=== PATIENT | female | born 1940 | race Caucasian/White ===

== ENCOUNTER 2024-11-04 14:08 | Emergency (ER) | payer OTHER, SELFPAY ==
[2024-11-04 14:24] VITALS: BP 149/68
[2024-11-04 15:02] LABS: % Basophils 1.1 % (0-2); % Eosinophils 1.7 % (0-6); % Immature Granulocytes 0.3 % (0-0.5); % Lymphocytes 22.1 % (20.5-51.1); % Monocytes 8.5 % (1.7-9.3); % Neutrophils 66.3 % (42.2-75.2); Absolute Basophils 0.1 10^3/uL (0-0.2); Absolute Eosinophils 0.1 10^3/uL (0-0.7); Absolute Lymphocytes 1.5 10^3/uL (1.2-3.4); Absolute Monocytes 0.6 10^3/uL (0.1-0.6); Absolute Neutrophils 4.4 10^3/uL (1.4-6.5); Hematocrit 37.8 % (37.0-47.0); Hemoglobin 12.8 g/dL (12.0-16.0); Mean Corp Hgb Conc. 33.9 g/dL (33.0-37.0); Mean Corpuscular Hgb 30.5 pg (27.0-31.0); Mean Corpuscular Volume 90.2 fL (81.0-99.0); Mean Platelet Volume 10.7 fL (7.4-10.4); Nucleated Red Blood Cells % 0 %; Platelet Count 242 10^3/uL (130-400); Red Blood Cell Count 4.19 10^6/uL (4.20-5.40); Red Cell Dist. Width 12.6 % (11.5-14.5); White Blood Cell Count 6.6 10^3/uL (4.8-10.8)
[2024-11-04 15:24] LABS: ALT (SGPT) 18 U/L (0-35); AST (SGOT) 25 U/L (14-36); Albumin 4.5 g/dl (3.5-5.0); Alkaline Phosphatase 91 U/L (38-126); Blood Urea Nitrogen 19 mg/dl (7-17); Calcium 9.5 mg/dl (8.4-10.2); Carbon Dioxide 28 mmol/L (22-30); Chloride 101 mmol/L (98-107); Glucose 128 mg/dl (70-99); Potassium 4.1 mmol/L (3.5-5.1); Sodium 136 mmol/L (135-145); Total Bilirubin 0.4 mg/dl (0.2-1.3); Total Protein 7.2 g/dl (6.3-8.2); eGFR > 60.00
[2024-11-04 16:59] VITALS: BP 151/63
[2024-11-04 18:40] VITALS: BMI 27.4
[2024-11-04 18:43] VITALS: BP 138/70
--- NOTE | 2024-11-04 18:59 | ED.GENMED ---
History of Present Illness
<Kaitlin Franklin PA-C - Last Filed: 11/04/24 23:17>
General
Chief Complaint: Heart Rate Problem
Source: patient
Exam Limitations: none
Time Seen by Provider: 11/04/24 18:31
Nursing documentation reviewed up to this point in time: agreed with
History of Present Illness
History of Present Illness:
Patient is an 84-year-old female with history atrial fibrillation status post multiple ablations, hypertension presenting to the emergency department for evaluation of heart palpitations. Patient states that over the past 2 days she has had
multiple episodes where she has felt palpitations and generalized weakness. Her Apple Watch has told her that she is in atrial fibrillation. Patient states that yesterday her Apple Watch states she was in atrial fibrillation with a heart rate in
130s. However she did self convert to normal sinus rhythm. Today while she was at lunch her Apple Watch once again told her that atrial fibrillation, although this time her heart rate was in the 80s. She came to the emergency department for
evaluation. Patient states that shortly after arriving to the emergency department she seemed to convert to normal sinus rhythm.
Patient states she feels generally weak. She did have an episode of chest tightness earlier today although has since resolved.
Patient did reach out to her attenuator, Dr. Leon at [facility] to let him know that she was coming to emergency department. He had recommended that she be started on the low-dose metoprolol and follow-up with him in office.
Review of Systems
<Kaitlin Franklin PA-C - Last Filed: 11/04/24 23:17>
Review of Systems
Allergies reviewed?: Yes
All Other Systems: ROS reviewed and negative except as documented in HPI and ROS
Phy Exam
<Kaitlin Franklin PA-C - Last Filed: 11/04/24 23:17>
Physical Exam
Physical Exam:
Vitals: Mildly hypertensive, otherwise vital signs are stable
General: Patient is well appearing, no acute distress. Nontoxic appearing
Skin: Warm and dry, no rashes or lesions
Head: Normocephalic, atraumatic
Eyes: Sclera nonicteric. EOMs intact. No nystagmus.
Throat: Protecting airway
Neck: Normal ROM, no cervical spine tenderness, no meningismus
Cardiac: Regular rate and rhythm, no murmurs.
Pulm: Normal respiratory effort, no wheezes, rales, rhonchi heard on exam.
Abdomen: Abdomen soft. No abdominal tenderness.
Extremities: No evidence of cyanosis or edema. Palpable DP pulse bilaterally
Neuro: AAOx3. Grossly intact.
Psychiatric: Normal affect.
Course
<Kaitlin Franklin PA-C - Last Filed: 11/04/24 23:17>
Orders/Labs/Results
Orders:
Orders
11/04/24 14:08
EKG [Electrocardiogram (*1)] Urgent
Reason for Study: Atrial Fibrillation
11/04/24 14:09
EKG- Treatment ONCE
11/04/24 14:35
Comprehensive Metabolic Panel Urgent
11/04/24 14:36
Complete Blood Count/With Diff Urgent
Abnormal Lab Results
11/04/24 11/04/24
14:35 14:36
RBC 4.19 L 10^6/uL
(4.20-5.40)
MPV 10.7 H fL
(7.4-10.4)
BUN 19 H mg/dl
(7-17)
Glucose 128 H mg/dl
(70-99)
11/04/24 14:36
11/04/24 14:35
Vital Signs
Initial and Last Documented VS:
Initial Vital Signs
Temp Pulse Resp BP Pulse Ox
97.5 F 65 18 149/68 98
11/04/24 14:24 11/04/24 14:24 11/04/24 14:24 11/04/24 14:24 11/04/24 14:24
Last Documented Vital Signs
Temp Pulse Resp BP Pulse Ox
98.2 F 54 10 144/60 95
11/04/24 16:59 11/04/24 20:00 11/04/24 20:00 11/04/24 20:00 11/04/24 20:00
<Kenyetta Feliciano, DO - Last Filed: 11/04/24 20:02>
Orders/Labs/Results
Orders:
Orders
11/04/24 14:08
EKG [Electrocardiogram (*1)] Urgent
Reason for Study: Atrial Fibrillation
11/04/24 14:09
EKG- Treatment ONCE
11/04/24 14:35
Comprehensive Metabolic Panel Urgent
11/04/24 14:36
Complete Blood Count/With Diff Urgent
Abnormal Lab Results
11/04/24 11/04/24
14:35 14:36
RBC 4.19 L 10^6/uL
(4.20-5.40)
MPV 10.7 H fL
(7.4-10.4)
BUN 19 H mg/dl
(7-17)
Glucose 128 H mg/dl
(70-99)
11/04/24 14:36
11/04/24 14:35
Vital Signs
Initial and Last Documented VS:
Initial Vital Signs
Temp Pulse Resp BP Pulse Ox
97.5 F 65 18 149/68 98
11/04/24 14:24 11/04/24 14:24 11/04/24 14:24 11/04/24 14:24 11/04/24 14:24
Last Documented Vital Signs
Temp Pulse Resp BP Pulse Ox
98.2 F 54 10 144/60 95
11/04/24 16:59 11/04/24 20:00 11/04/24 20:00 11/04/24 20:00 11/04/24 20:00
<Kaitlin Franklin PA-C - Last Filed: 11/04/24 23:17>
MDM/Problems Addressed
Differential Diagnosis Includes:
Not limited to: Cardiac arrhythmia, paroxysmal atrial fibrillation, etc.
MDM/Problems Addressed:
84-year-old female with history of paroxysmal atrial fibrillation, hypertension presenting with generalized weakness intermittently over the past few days. She was found to be in atrial fibrillation on her Apple Watch yesterday and again today.
Patient denies any current chest pain, shortness of breath, dizziness. Patient mildly hypertensive on arrival, otherwise stable vital signs. EKG obtained in triage does show normal sinus rhythm indicating that patient did self convert prior to
arrival. Patient does note improvement in symptoms. Screening labs initially in triage without any clinically significant abnormalities. By my assessment patient is well-appearing, no apparent distress. Cardiac/pulmonary assessment unremarkable.
Patient has regular rate and rhythm. No lower extremity edema. No focal neurologic deficits.
Patient did speak with her attenuator via texting who recommended initiation of metoprolol 12.5 mg daily and will follow-up with her closely in office. Patient has had heart rate in 50s for majority of time emergency department. Would not
recommend initiation of this with such heart rate. Will provide prescription for metoprolol 12.5 mg and instruct patient to only take if she returns back in atrial fibrillation. Patient will follow closely with cardiology for further evaluation
and management. Patient remained in normal sinus rhythm and is asymptomatic. Stable for discharge with cardiology follow-up outpatient. Return precautions discussed
Chronic conditions affecting care:
Paroxysmal atrial fibrillation, hypertension
Acute Exacerbation and/or Progression of Chronic Illness:
Acutely hypertensive
<Kaitlin Franklin PA-C - Last Filed: 11/04/24 23:17>
*Pulse Oximetry
Patient hypoxic: no
*EKG
Interpreted by ED Provider?: Yes
EKG Intrepretation Date: 11/04/24
Interpretation: normal
Comparison EKG: no comparison EKG present
Heart Rate: 65
Rate: normal
Rhythm: sinus
[place]: normal axis
Interval: normal interval
QRS Pattern: normal QRS
Ischemia: no ischemia
*Small Animal Caretaker Interpretation
Rate: normal
Interpretation: normal
Heart Rate: 58
Rhythm: sinus
*Critical Care Note
Total Time (30-74mins, 75-104mins- exclusive of procedures): Not Applicable
ED Attending Note
<Kaitlin Franklin PA-C - Last Filed: 11/04/24 23:17>
-
Portions of this chart may have been created with voice recognition software.� Occasional wrong word or��sound alike� substitutions may have occurred due to the inherent limitations of voice recognition software.
<Kenyetta Feliciano DO - Last Filed: 11/04/24 20:02>
ED Attending Note
Patient seen and examined by attending physician: Yes
I performed the substantive portion of visit, reviewed & personally made and approve the management plan that is documented in note by myself or GERSON.: Yes
I performed a history and physical exam of patient and discussed management with resident, I reviewed resident's note and agree with documented findings and plan of care.: Yes
ED Attending Note:
84-year-old female with known history of atrial fibrillation on Eliquis presenting to the emergency department for generalized weakness and feeling unwell. Patient reports yesterday she went into atrial fibrillation, with rate in the 130s. She
converted to a sinus rhythm and felt better. However today while at lunch, started to feel unwell and her Apple Watch told her that she was again in A-fib, however heart rate in the 80s. She is not on any rate controlling medications. She reports
compliance with Eliquis. She reports history of ablation in the past. She is currently asymptomatic. Vital signs show mild bradycardia.
On exam, patient is resting comfortably, no acute distress or discomfort. Patient has gone back into a sinus rhythm with unremarkable cardiac and pulmonary exam. Patient reports that she talk to her attenuator who advised going on metoprolol.
However heart rate is in the 50s and patient is in sinus so holding metoprolol at this time. Will prescribe metoprolol 12.5 as directed by cardiology, however advised that patient generally started if she goes back in atrial fibrillation and should
additionally follow-up with cardiology. Screening laboratory analysis here is unremarkable. Given sinus rhythm and asymptomatic status, feel stable for discharge. Return precautions discussed and patient verbalized under
Discharge Plan
Departure
Patient Disposition: Home (Routine Discharge)
Date of Disposition: 11/04/24
Time of Disposition: 19:53
Patient with high blood pressure during this ER visit?: Yes
Condition: Good
Covid-19: Not Applicable
Discharge Problem:
Paroxysmal atrial fibrillation
Instructions: Atrial Fibrillation (DC), BLOOD PRESSURE
Prescriptions:
New
metoprolol succinate 25 mg tablet extended release 24 hr
12.5 mg PO DAILY Qty: 15 0RF
Activity Restrictions/Additional Instructions:
Return to the emergency department with any chest pain, shortness of breath, persistently elevated heart rate, dizziness/lightheadedness, significant weakness, worsening in current symptoms, or any other concerns
-As discussed�EKG performed in the emergency department showed normal sinus rhythm.
-A prescription for metoprolol sent to your pharmacy. However�you should refrain from taking this medication given your lower heart rate unless you go back into atrial fibrillation
-Follow-up with your attenuator for further evaluation/management of your atrial fibrillation
Monitor your symptoms closely and return to the emergency department with any acute worsening/new symptoms or any other concerns
Interventions
Interventions:
*Risk Screen - Suicide Last Done: 11/04/24 18:40
*General Assessment Last Done: 11/04/24 18:40
*Neglect/Abuse Screening Last Done: 11/04/24 18:40
ED- Fall Risk Assessment Last Done: 11/04/24 18:40
*ED COVID-19 Vaccine History Last Done: 11/04/24 18:40
*Nursing Disposition Last Done: 11/04/24 20:25
ED- Cardiac Assessment Last Done: 11/04/24 18:40
ED- Pulmonary Assessment Last Done: 11/04/24 18:40
Discharge Date and Time
Discharge Date/Time: 11/04/24 20:25
Print Language: GABONESE
[2024-11-04 19:00] VITALS: BP 140/57
[2024-11-04 20:00] VITALS: BP 144/60
== END 2024-11-04 20:25 | disposition home or self-care (01) ==
LOC: EMR 14:08
PROVIDERS: Emergency Medicine; EMERGENCY PHYSICIAN Student in an Organized Health Care Education/Training Program; FAMILY PHYSICIAN Internal Medicine
DX: I48.0 Paroxysmal atrial fibrillation (principal); R53.1 Weakness; R07.89 Other chest pain; I10 Essential (primary) hypertension; M43.22 Fusion of spine, cervical region; Z98.1 Arthrodesis status; Z88.5 Allergy status to narcotic agent
CPT/HCPCS: 99283; 80053; 85025; 93005